=== PATIENT | female | born 1940 | race Caucasian/White ===

== ENCOUNTER 2016-07-29 09:05 | Day surgery (SDC) | payer OTHER, BC ==
[~2016-07-29] VITALS: Ht 162.6 cm; Wt 76.0 kg
[~2016-07-29 09:05] MED LIST: ATENOLOL25 MG PO; CELEBREX200 MG PO; CLARITIN,ALAVAR10 MG PO; COUMADIN1 MG PO; DIOVAN HCT 81 TABLET PO; IRON325 M1 PO; LIPITOR40 MG PO; LO-DOSE ASPIRIN81 M1 PO; LO-DOSE ASPIRIN81 M2 PO; METAXALONE800 MG PO; NEXIUM40 MG PO; OXYCODONE HCL5 MG PO; PERCOCET 5/31 TABLET PO; ROXICODONE5 MG PO; VITAMIN D-32000 UNI2 PO; ZOCOR40 MG PO
[2016-07-29 09:26] VITALS: BP 178/81
[2016-07-29 09:40] LABS: POINT-OF-CARE METER ID UU14174212
[2016-07-29 13:17] LABS: POINT-OF-CARE METER ID UU13113675
[2016-07-29 14:34] VITALS: BP 137/62
[2016-07-29 15:30] VITALS: BP 154/69
[2016-07-29 16:27] VITALS: BP 158/67
== END 2016-07-29 16:40 | disposition home or self-care (01) ==
LOC: SDC 09:05
PROVIDERS: Neurological Surgery
PROC: 00NY0ZZ Release Lumbar Spinal Cord, Open Approach (ICD-10-PCS; principal; 2016-07-29)
DX: M48.06 Spinal stenosis, lumbar region (principal); M48.07 Spinal stenosis, lumbosacral region; M25.551 Pain in right hip; M25.552 Pain in left hip; M54.89 Other dorsalgia; M47.816 Spondylosis without myelopathy or radiculopathy, lumbar region; M47.817 Spondylosis without myelopathy or radiculopathy, lumbosacral region; R20.2 Paresthesia of skin; M41.86 Other forms of scoliosis, lumbar region; M51.36 Other intervertebral disc degeneration, lumbar region; M51.37 Other intervertebral disc degeneration, lumbosacral region; Z85.820 Personal history of malignant melanoma of skin; Z85.828 Personal history of other malignant neoplasm of skin; E11.9 Type 2 diabetes mellitus without complications; I10 Essential (primary) hypertension; Z96.642 Presence of left artificial hip joint; Z82.49 Family history of ischemic heart disease and other diseases of the circulatory system; Z83.49 Family history of other endocrine, nutritional and metabolic diseases; Z80.1 Family history of malignant neoplasm of trachea, bronchus and lung; Z79.82 Long term (current) use of aspirin
CPT/HCPCS: 72020; 76000; 82948; J0330; J0690; J1100; J1170; J2370; J2405; J2550; J2710; J2930; J3010; S0020